=== PATIENT | female | born 1975 | race Caucasian/White ===

== ENCOUNTER 2023-01-20 01:19 | Day surgery (SDC) | payer OTHER, SELFPAY ==
[2023-01-11 11:33] VITALS: BMI 46.0
[2023-01-20 11:10] VITALS: BP 127/78; PULSE 65; RESP 20; TEMP 37.1; O2SAT 97; BMI 47.4
[2023-01-20] MEDS: LACTATED RINGERS 1,000 ML 150 ML IV CONT (11:23)
--- NOTE | 2023-01-20 12:11 | P.PNAN_ITS ---
Anes - Initial Pre Proc Eval Procedure: Operation Date: 01/20/23 12:30 Proposed Procedures p Colonoscopy - Wu Cisse MD Date/Time: 01/20/23 12:11 Surgeon: Wu Cisse MD Pre Op Diagnosis: family hx colon ca Patient Data Age: 47 Gender: F Height: 1.6 m Weight: 121.5 kg Last Vital Signs Temp 98.8 F 01/20/23 11:10 Pulse 65 01/20/23 11:10 Resp 20 01/20/23 11:10 BP 127/78 01/20/23 11:10 Pulse Ox 97 01/20/23 11:10 O2 Del Method Room Air 01/20/23 11:10 Allergies Allergy/AdvReac Type Severity Reaction Status Date / Time nickel Allergy Unknown unkown Verified 01/20/23 11:07 Home Medications Medication Instructions Recorded Confirmed Type cetirizine 10 mg tablet (Zyrtec) 10 mg PO DAILY PRN Allergy Symptoms 01/11/23 01/20/23 History norethindrone (contraceptive) 0.35 0.5 mg PO DAILY 01/11/23 01/20/23 History mg tablet Patient hx anesthesia problems: none Family hx anesthesia problems: none Results Review: All pre-operative results and documents have been reviewed as part of the pre- operative evaluation. [facility] Past Medical History Medical History Allergies Anxiety Family History Family History Father Family history of gout Hypertension Mother Family history of gout Patient's mother is , Onset Age: 75 Sibling Family history of gout Diabetes mellitus Hypertension Family history of allergic disorder Grandparent Family history of malignant neoplasm of gastrointestinal tract Family history of dementia Social History Social History Smoking status: Never smoker Alcohol intake: current Drinks per week: 7 Substance use: unknown Substance use type: does not use Lack of Transportation: No Lack of Food: Never True Current Housing: I Have Housing Concerned About Future Housing: No Difficulty Paying Gas/Electric Bills: No Difficulty Paying for Meds: No Currently Unemployed: No Education: Bachelor's Degree Difficulty w/ Childcare or Family Care: No Living arrangements: with family Spiritual care concerns: No Anes - Eval Final PreProcedure Day of Procedure 01/20/23 12:11 Patient weight: morbidly obese Heart: regular rate and rhythm Lungs: clear to auscultation Airway: Mallampati scale class II Neurological: alert and oriented Last oral intake: >/= 8 hours ASA classification: III Emergent: no Anesthetic plan: proceed Anesthesia type and monitoring: general GIVS and standard monitoring Results Review: All pre-operative results and documents have been reviewed as part of the pre- operative evaluation. Informed Consent: The patient's anesthetic plan and its attendant risks and benefits were discussed with the patient/family/POA. Questions were solicited and answers provided to the satisfaction of the patient/family/POA.
[2023-01-20 12:52] VITALS: BP 130/76; PULSE 75; RESP 21; O2SAT 96
--- NOTE | 2023-01-20 12:52 | PM.HPGS ---
History of Present Illness History of Present Illness Consent: Risks, benefits, and alternatives have been discussed and questions answered. Patient agrees to proceed with procedure. Chief complaint: family hx colon ca Narrative: Paula Jaime is a 47 year old female referred for colon cancer screening. She does have a family history of colon cancer. Review of Systems Review of Systems: All systems reviewed & are unremarkable except as noted in HPI and below PMFSH Past Medical History Medical History Allergies Anxiety Family History Family History Father Family history of gout Hypertension Mother Family history of gout Patient's mother is , Onset Age: 75 Sibling Family history of gout Diabetes mellitus Hypertension Family history of allergic disorder Grandparent Family history of malignant neoplasm of gastrointestinal tract Family history of dementia Social History Social History Smoking status: Never smoker Alcohol intake: current Drinks per week: 7 Substance use: unknown Substance use type: does not use Lack of Transportation: No Lack of Food: Never True Current Housing: I Have Housing Concerned About Future Housing: No Difficulty Paying Gas/Electric Bills: No Difficulty Paying for Meds: No Currently Unemployed: No Education: Bachelor's Degree Difficulty w/ Childcare or Family Care: No Living arrangements: with family Spiritual care concerns: No Meds Home Medications and Allergies Home Medications Medication Instructions Recorded Confirmed Type cetirizine 10 mg tablet (Zyrtec) 10 mg PO DAILY PRN Allergy Symptoms 01/11/23 01/20/23 History norethindrone (contraceptive) 0.35 0.5 mg PO DAILY 01/11/23 01/20/23 History mg tablet Allergies Allergy/AdvReac Type Severity Reaction Status Date / Time nickel Allergy Unknown unkown Verified 01/20/23 11:07 Vital Signs Vital Signs - 24 hr 01/20/23 11:10 Temperature 37.1 C Pulse Rate 65 Respiratory Rate 20 Blood Pressure 127/78 Pulse Oximetry 97 Oxygen Delivery Room Air Exam Const: General: alert Orientation/consciousness: patient oriented x3 Resp: Auscultation: clear to auscultation bilaterally Cardio: Rhythm: regular rhythm GI: GI Palp: Yes Soft to palpation and No Tenderness to palpation present (GI) Neuro: General: patient oriented x3 Assessment and Plan Assessment and plan (1) Colon cancer screening: Code(s): Z12.11 - Encounter for screening for malignant neoplasm of colon Status: Acute Assessment and Plan: Colonoscopy with possible biopsy or polypectomy or cautery or injection of substances.
[2023-01-20 13:02] VITALS: BP 120/68; PULSE 66; RESP 17; O2SAT 99
[2023-01-20 13:12] VITALS: BP 129/76; PULSE 64; RESP 18; O2SAT 98
== END 2023-01-20 13:25 | disposition home or self-care (01) ==
PROVIDERS: PCP Physician Assistant; Visit Provider Internal Medicine Gastroenterology
PROC: 0DJD8ZZ Inspection of Lower Intestinal Tract, Via Natural or Artificial Opening Endoscopic (ICD-10-PCS; CPT 45378; principal; 2023-01-20 12:30)
DX: Z12.11 Encounter for screening for malignant neoplasm of colon (principal); K57.32 Diverticulitis of large intestine without perforation or abscess without bleeding; Z80.0 Family history of malignant neoplasm of digestive organs; E66.01 Morbid (severe) obesity due to excess calories; Z68.42 Body mass index [BMI] 45.0-49.9, adult
CPT/HCPCS: 45380; 88305; J2704; J7120

== ENCOUNTER 2025-03-26 08:07 | Outpatient (CLI) | payer OTHER, SELFPAY ==
--- OUTSIDE RECORDS SUMMARY | 2025-03-09 03:00 | XMS_ITS ---
Author Organization [facility] Address [address] [place] [address] Care Team Providers Care Cisco Certified Network Professional Name Role Phone Migration, Provider Unavailable Unavailable REASON FOR VISIT EMR-Cecilio Encounters Encounter Location Date Provider Diagnosis [facility] [address] [place] [address] 03/09/2025 Provider Migration Plan Of Treatment No Information Progress Notes * Paula HESSDOB:1975 (50 yo F)Acc No.[id number]:03/09/2025 Patient: Paula CHEUNG :1975 A ge:50 Y S ex:Female Address:[address], [place], [address] Subjective: * Chief Complaints: * E MR-Cecilio * * Date:
--- OUTSIDE RECORDS SUMMARY | 2025-03-10 03:00 | XMS_ITS ---
Author Organization [facility] Address [address] [place] [address] Care Team Providers Care Auger Supervisor Name Role Phone Migration, Provider Unavailable Unavailable REASON FOR VISIT EMR-Cecilio Encounters Encounter Location Date Provider Diagnosis [facility] [address] [place] [address] 03/10/2025 Provider Migration Plan Of Treatment No Information Progress Notes * Paula HESSDOB:1975 (50 yo F)Acc No.[id number]:03/10/2025 Patient: Paula CHEUNG :1975 A ge:50 Y S ex:Female Address:[address], [place], [address] Subjective: * Chief Complaints: * E MR-Cecilio * * Date:
--- OUTSIDE RECORDS SUMMARY | 2025-03-26 08:14 | XMS_ITS | Clinical Summary ---
Author Organization [facility] Address [address] [place] [address] Care Team Providers Care Circuit Board Drafter Name Role Phone Unavailable Primary Care Provider Unavailabl e Source Comments [facility],non-owned Affiliates and Associated Physician Practices is amultiple site organization consisting of ambulatory clinics and hospital sitesin [place], [place], [place] and [place]. This disclosure is being madepursuant to the Care Everywhere program and may not contain all information available regarding this patient. Last updated 18.[facility] Allergies No known active allergies Medications * Be aware that medications may not be up to date on this document. Alwaysverify current medications with the patient. OtherIndication s:bcp norris Indications: bcp norris Active cyclobenzaprine (FLEXERIL) 10 MG tablet Take 1 Tab by mouth 3 times daily as needed for Muscle Spasms. Caution sedation. 15 Tab 0 10/15/2014 Active naproxen (NAPROSYN) 500 MG tablet Take 1 Tab by mouth 2 times daily as needed for Pain. 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 Gender Identity Not on file Sexual Orientation Not on file Last Filed Vital Signs Vital Sign Reading Time Taken Comments Blood Pressure 137/85 10/15/2014 10:03 AM CDT ri ght arm Pulse 62 10/15/2014 10:03 AM CDT Temperature 36.9 C (98.5 F) 10/15/2014 10:03 AM CDT Respiratory Rate 18 10/15/2014 10:03 AM CDT Oxygen Saturation 99% 10/15/2014 10:03 AM CDT Inhaled Oxygen Concentration - - Weight 90.7 kg (200 lb) 10/15/2014 10:03 AM CDT Height 160.7 cm (5' 3.25) 10/15/2014 10:03 AM C DT Body Mass Index 35.15 10/15/2014 10:03 AM CDT Plan of Treatment Health Maintenance Due Date Last Done Comments COLOGUARD (AGES 45-75) - COL ON CA SCREENING 1975 COLON MONITORING 1974 COLONOSCOPY - COLON CA SCREENING 1974 CT COLONOGRAPHY - COLON CA SCREENING 1974 Colorectal Cancer Screening 1975 FIT - COLON CA SCREENING 1974 FLEX SIG - COLON CA SCREENING 1974 LIPID TESTING 1975 MAMMOGRAM 1974 HIV SCREENING 1989 HEPATITIS C SCREENING 02/29/1992 DTAP/TDAP/TD VACCINES (1 - Tdap) 1993 HEPATITIS B VACCINE (1 of 3 - 19+ 3-dose series) 1993 PAP SMEAR 1995 PNEUMOCOCCAL VACCINE 50+ (1 of 1 - PCV) 2024 ZOSTER VACCINE (1 of 2) 2024 DEPRESSION SCREENING 05/23/2024 COVID-19 VACCINE (1 - 2023-2 5 season) 2025 INFLUENZA VACCINE (#1) 2025 HIB VACCINE Aged Out No longer eligi ble based on patient's age to complete this topic HPV VACCINE Aged Out No longer eligi ble based on patient's age to complete this topic MENINGOCOCCAL (Group B) VACC INE SHARED DECISION-MAKING Aged Out No longer eligibl e based on patient's age to complete this topic MENINGOCOCCAL GROUPS A/C/Y/W VACCINE Aged Out No longer eligible b ased on patient's age to complete [place] [address] [employer]
--- OUTSIDE RECORDS SUMMARY | 2025-03-26 08:15 | XMS_ITS | Clinical Summary ---
Author Organization [facility] Address [address] [place] [address] Care Team Providers Care Ice Resurfacing Machine Operators Name Role Phone Deandre Taylor MD Primary Care Provider Beba Duckworth MD Unavailable [phone] Allergies Active Allergy Reactions Criticality Noted Date Comments Nickel Itching,Swelling Medium 1985 Medications No known medications Active Problems Problem Noted Date Diagnosed Date Preventative health care 02/14/2025 Assessment & Plan (02/14/2025 3:04 PM CDT): - New or chronic worsening conditions: suspected sleep apnea - Mental health: no significant psychiatric/mental health conditions affecting her day to day functioning - Dental health: Recommend regular dental care and cleaning. Discussed importance of regular tooth brushing, flossing, and dental visits. - Nutrition: Recommend moderation in sodium/caffeine intake, saturated fat and cholesterol, caloric balance, sufficient intake of fresh fruits, vegetables - Exercise: Recommend to exercise at least 30 minutes moderate to vigorous exercise most days of the week. (minimum 150 minutes weekly) - Immunizations: Age and sex appropriate immunizations reviewed and offered - Cervical Cancer screening: not indicated, status post hysterectomy - Breast Cancer screening: Up to date - Colon cancer screening: Up to date, requesting colonoscopy records from [facility] - Lung cancer screening: not indicated - Bone desnity/osteoporosis screening:not indicated - control: Status post hysterectomy Class 3 severe obesity due t o excess calories without serious comorbidity with body mass index (BMI) of 45.0 to 49.9 in adult 02/14/2025 Assessment & Plan (02/14/2025 3:04 PM CDT): Wt Readings from Last 3 Encounters: 02/14/25 119.4 kg (263 lb 3.2 oz) 09/13/23 124.6 kg (274 lb 9.6 oz) 08/18/23 123.8 kg (272 lb 14.9 oz) Body mass index is 46.62 kg/m . - chronic condition, not at goal - BMI Follow-up includes: nutrition counseling, exercise counseling and education provided - Recommend to exercise at least 30 minutes moderate to vigorous exercise most days of the week. (minimum 150 minutes weekly) Long-standing obesity since childhood. Recent weight loss of 9 pounds due to dietary changes. 's diagnosis of hyperlipidemia has led to a Mediterranean diet, resulting in weight loss for both. Discussed challenges of weight loss, especially compared to 's more rapid weight loss. - Continue Mediterranean diet and lifestyle modifications - Recheck weight and dietary progress in six months Orders: Vitamin D 25 hydroxy; Future Folate; Future Vitamin B12; Future Comprehensive metabolic panel; Future Hemoglobin A1c; Future Lipid panel; Future S/P hysterectomy 02/14/2025 Assessment & Plan (02/14/2025 3:04 PM CDT): Secondary to presence of fibroids with excessive bleeding and anemia status post hysterectomy without oophorectomy Pure hypercholesterolemia 02/14/2025 Assessment & Plan (02/14/2025 3:04 PM CDT): - Recent diagnosis, on lab 11/2024, per chart review - Slightly elevated cholesterol levels noted in recent blood work. Dietary changes have been implemented due to 's hyperlipidemia, which should benefit her lipid profile as well. - Recheck lipid panel in six months to assess impact of dietary changes Orders: Lipid panel; Future Snoring 02/14/2025 Assessment & Plan (02/14/2025 3:04 PM CDT): Snoring and suspected sleep apnea Chronic snoring, likely exacerbated by obesity. Potential sleep apnea discussed, with its impact on cardiovascular health. She is open to evaluation. - Order home sleep study through [facility] Psychophysiological insomnia 02/14/2025 Assessment & Plan (02/14/2025 3:04 PM CDT): Chronic difficulty falling asleep, possibly related to stress and lack of exercise. She uses meditation and breathing techniques to aid sleep and prefers to avoid medications like melatonin. - Encourage continued use of meditation and breathing techniques for sleep Resolved Problems Problem Noted Date Diagnosed Date Resolved Date Adenomyosis 07/27/2023 02/14/2025 Abnormal uterine bleeding (AUB) 07/05/2023 02/14/2025 Fibroids 07/05/2023 02/14/2025 Encounter for IUD insertion 06/14/2017 01/30/2021 History of surgical procedure 10/04/2012 06/14/2017 Overview (08/26/2016): Status post LEEP (loop electrosurgical excision pr Encounters Date Type Department Care Team Description 02/18/2025 Telephone [facility] Primary Care at [address] [address] Deandre Taylor MD 02/14/2025 2:00 PM CDT Office Visit [facility] Medical [facility] Primary Care at [address] [address] Deandre Taylor MD Preventative health care (Primary Dx); Class 3 severe obesity due to excess calories without serious comorbidity with body mass index (BMI) of 45.0 to 49.9 in adult; Pure hypercholesterolemia; S/P hysterectomy; Snoring; Psychophysiological insomnia; KIRTI (obstructive sleep apnea) from Last 3 Months Immunizations Immunization Administration Dates Next Due Influenza, Quadrivalent, Spl it, Preservative Free, Intramuscular 02/28/2018 Influenza, Unspecified 02/07/2025(Deferr ed: Patient Refused),05/23/2024(Deferred: Patient Refused) Pfizer SARS-CoV-2 Monovalent Vaccination (12+ Yrs) PURPLE 08/22/2020,08/01/2020 Surgical History Surgery Date Site/Laterality Comments EYE SURGERY 05/23/1992 - 05/22/1993 age 17 LAPAROSCOPIC HYSTERECTOMY Family History Medical History Relation Name Comments Hypertension Brother 1 Mason Tadeo Jr. Obesity Brother 1 Mason Tadeo Jr. Hypertension Brother 2 Ac Tadeo Obesity Brother 2 Ac Tadeo Cancer Father Mason Tadeo Sr. Hypertension Father Mason Tadeo Sr. Alcohol abuse Mother Other Other 1 No family histo ry of Cancer, breast; Other Other 2 No family histo ry of Cancer, colon; Other Other 3 No family histo ry of Cervical cancer; Other Other 4 No family histo ry of Ovarian cancer; Relation Name Status Comments Brother 1 Mason Tadeo Jr. Brother 2 Ac Tadeo Father Mason Tadeo Sr. Mother Other 1 Other 2 Other 3 Other 4 Sister 1 Alive Sister 2 Alive Social History Tobacco Use Types Packs/Day Years Used Date Smoking Tobacco: Never Smokeless Tobacco: Never Tobacco Cessation:Counseling Given: Not Answered Alcohol Use Standard Drinks/Week Comments Yes 7 (1 standard drink = 0.6 oz pur e alcohol) Humiliation, Afraid, Rape, and Kick questionnair e Answer Date Recorded Fear of Current or Ex-Partner No Emotionally Abused No 01/29/2020 Physically Abused No 01/29/2020 Sexually Abused No 01/29/2020 AUDIT-C Answer Date Recorded Q1: How often do you have a drink containing alc ohol? 2-3 times a week 08/09/2023 Q2: How many drinks containi ng alcohol do you have on a typical day when you are drinking? 1 or 2 08/09/2023 Q3: How often do you have si x or more drinks on one occasion? Never 08/09/2023 PHQ-2 Answer Date Recorded PHQ-2 Total Score (If total score is 3 or more points, staff should administer the PHQ-9) 0 02/14/2025 Personal Safety Answer Date Recorded Have you ever been in or are you currently in a harmful physical or emotional relationship or is someone making you feel afraid or unsafe? 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 Gender Identity Female 01/29/2020 8:18 AM CDT Sexual Orientation Not on file Obstetrics History Para Term AB IAB SAB Ectopic Multiple Livin g Live Births 0 0 0 0 0 0 0 0 0 0 0 Last Filed Vital Signs Vital Sign Reading Time Taken Comments Blood Pressure 130/84 02/14/2025 1:57 PM CDT Pulse 67 02/14/2025 1:57 PM CDT Temperature 36.8 C (98.2 F) 02/14/2025 1:57 PM CDT Respiratory Rate 15 08/18/2023 2:35 PM CDT Oxygen Saturation 98% 02/14/2025 1:57 PM CDT Inhaled Oxygen Concentration - - Weight 119.4 kg (263 lb 3.2 oz) 02/14/2025 1:57 PM CDT Height 160 cm (5' 3) 02/14/2025 1:57 PM CDT Body Mass Index 46.62 02/14/2025 1:57 PM CDT Plan of Treatment Health Maintenance Due Date Last Done Comments Hepatitis C Screening 1975 DTaP/Tdap/Td Vaccine (1 - Tdap) 1985 Hepatitis B Screening 1992 Breast Cancer Screening-Mammogram 12/15/2023 12/14/2022, 02/12/2021, 01/29/2020, Additional history exists Cervical Cancer Screening 12/15/20232022, 12/14/2022, 01/29/2020 Zoster Vaccine (1 of 2) 2024 Covid-19 Vaccine (3 - season) 2025 08/22/2020, 08/01/2020 Influenza Vaccine (#1) 2025 02/28/2018 Depression Screening 02/14/2026 02/14/2025 Regular Well Visit/Exam 18-64 02/14/2026 02/14/2025, 12/14/2022, 02/12/2021, Additional history exists Colon Cancer Screening-Colonoscopy 01/21/2028 01/20/2023 Pneumococcal vaccine <65 Aged Out No longer eligible based on patient's age to complete this topic Procedures Procedure Name Priority Date/Time Associated Diagnosis Comments COLONOSCOPY Routine 01/20/2023 PAP AND HIGH RISK HPV, REFLEX TO GENOTYPING Routine 12/14/2022 4:06 PM CDT Well woman exam with routine gynecological exam SCREENING MAMMOGRAM BILATERAL W CLARK Schedule Routine, Read Routine (OP Routine) 12/14/2022 1:51 PM CDT Screening mammogram, encounter for from Last 3 Months or Most Recently Relevant to Health Maintenance Results * Colonoscopy (01/20/2023) Anatomical Region Laterality Modality Other us Historical Provider ENDOSCOPY PROCEDURES Nhung chelsey Result * Pap and High Risk HPV and Genotyping (Cytology Component) (12/14/2022 4:06 PM CDT) Thin prep (Pap test) 12/14/2022 4:06 PM CDT 12/22/2022 12:18 PM CDT Narrative PATHOLOGY [facility] - 12/24/2022 2:31 PM CDT EPIC results best viewed via link to PDF [address] [address] Tele: Hannah Haywood MD - [place] Worker CYTOLOGY REPORT Note to Patients: This report may contain a detailed description of human tissue sent by a health care provider to the laboratory for pathologic evaluation. The content of this report is essential for diagnosis and may provide important critical findings. This information may be unfamiliar to patients to review without a medical professional present. It is advised that the patient review this report in the presence of a health care provider who can answer questions and explain the details. Patient Name: RADHA HESS Address: [address] [place] [address] Gender: F : 1975 (Age: 47) Service: Location: [facility] : [id number] [facility] #: [id number] Patient Type: [facility] SPECIMEN Taken: 12/14/2022 Reported: 12/24/2022 Physician(s): Beba Duckworth M.D. FINAL DIAGNOSIS: SOURCE OF SPECIMEN - ThinPrep Pap and HPV w/ reflex Genotyping: STATEMENT OF ADEQUACY Source: Cervical/Endocervical - Satisfactory for interpretation - Endocervical /Transformation Zone component present - Case screened using computer assisted imaging technology GENERAL CATEGORIZATION: - Negative for intraepithelial lesion or malignancy yvonne/12/24/2022 14:31RanJESE Villanueva(ASCP), CFIAC Report Reviewed and Electronically Signed By JESE Baker(ASCP), CFIACClerical Data Follow A; [id number] DIAGNOSIS COMMENT: Ancillary Testing: HPV Genotype 16 - Not Detected Reference Range: Not Detected HPV Genotype 18 - Not Detected Reference Range: Not Detected HPV High Risk Group (31, 33, 35, 39, 45, 51, 52, 56, 58, 59, 66 and 68) - Not Detected Reference Range: Not Detected This test was performed using the NANCY 4800 CLINICAL DIAGNOSIS AND HISTORY Last Menstrual Period: 11/29/22 REPORT IMAGES AND/OR SCANNED DOCUMENTS ONLY VIEWABLE IN PDF FORMAT The Pap test is a screening test used to aid in the detection of cervical cancer and its precursors. It should not be the sole means by which malignant and premalignant lesions are diagnosed. Both false negative and false positive results may occur. It also has poor sensitivity for the detection of endometrial lesions and should not be used to evaluate suspected endometrial abnormalities. For these reasons it is most important to obtain Pap tests at regular intervals, as recommended by your physician or nurse practitioner. Beba Duckworth MD LAB CYTOLOGY ORDERABLES Final Result PATHOLOGY [facility] Laboratory Receiving [address] [place] [address] * Screening Mammogram Bilateral W Clark (12/14/2022 1:51 PM CDT) Anatomical Region Laterality Modality Breast Bilateral Mammography Narrative 12/14/2022 2:31 PM CDT Examination: Screening Mammogram Bilateral W Clark: 12/14/22 Clinical: Screening mammogram, encounter for. Prior Study Comparisons: Comparison was made to the prior available relevant studies at the time of interpretation. Findings: Bilateral No significant masses, malignant type calcifications, skin thickening, nipple retraction, or significant lymphadenopathy is noted in either breast. The CAD review showed no significant findings. The breasts have scattered areas of fibroglandular density. The patient will be notified of results by letter. Impression: BI-RADS ATLAS category (overall): 1 - Negative There is no mammographic evidence of malignancy. Routine Screening Mammogram in 1 Yr is recommended for bilateral Overall Assessment: 1 - Negative us Self Screening Mammogram IMG MAMMO PROCEDURES Fi nal Result from Last 3 Months or Most Recently Relevant to Health Maintenance Insurance [employer] Care Teams Ice Resurfacing Machine Operators Relationship Specialty Start Date End Date Deandre Taylor MD [address] [facility] [address] [place] [address] PCP - General Family Medicine 02/14/25 Beba Duckworth MD [address] [facility] [facility] [address] [place] [address] Consulting Physician Obstetrics and Gynecology 02/14/25
--- OUTSIDE RECORDS SUMMARY | 2025-03-26 08:15 | XMS_ITS | Clinical Summary ---
Author Organization [facility] Address [address] [place] [id number] Care Team Providers Care Track Grinder Name Role Phone Unavailable Primary Care Provider Unavailabl e Active Problems No known active problems Encounters Date Type Department Care Team Description 03/12/2025 External Device Data [facility] ABSTRACTION Provider, Abstract 02/05/2025 External Device Data [facility] Provider, Abstract 12/25/2024 External Device Data [facility]STRACTION Provider, Abstract from Last 3 Months Social History Tobacco Use Types Packs/Day Years Used Date Smoking Tobacco: Never Assessed Comments Unknown Sex and Gender Information Value Date Recorded Sex Assigned at Not on file Legal Sex Female 8:46 AM CDT Gender Identity Not on file Sexual Orientation Not on file Last Filed Vital Signs Vital Sign Reading Time Taken Comments Blood Pressure 120/74 12/07/2024 10:27 AM CDT Pulse - - Temperature - - Respiratory Rate - - Oxygen Saturation - - Inhaled Oxygen Concentration - - Weight 119.7 kg (264 lb) 12/07/2024 10:27 AM CDT Height 160 cm (5' 3) 12/07/2024 10:27 AM CDT Body Mass Index 46.77 12/07/2024 10:27 AM CDT Plan of Treatment Health Maintenance Due Date Last Done Comments Pre-Diabetes and Diabetes Screening 1974 DTAP/TDAP/TD VACCINES (1 - Tdap) 1993 HEPATITIS B VACCINES (1 of 3 - 19+ 3-dose series) 1993 HPV/Cotest (21-29) 1995 HPV/Cotest (30-65) 2004 COLORECTAL SCREENING 2019 Colorectal Cancer Screening 2019 FIT-DNA Q 3 years 2019 FIT/FOBT Q 1 year 2019 Flex Sig/CT Colonography Q 5 years 2019 BREAST CANCER SCREENING 12/15/2023 12/15/19, 12/14/2022, 02/12/2021, Additional history exists ZOSTER VACCINE (1 of 2) 2024 INFLUENZA VACCINE (#1) 2024 02/28/2018 COVID-19 Vaccine (2024-2 6 season) 2025 08/22/2020, 08/01/2020 CERVICAL CANCER SCREENING 12/14/2025 PAP SMEAR 12/14/2025 12/14/2022 Insurance ALLEGIANCE OPEN ACCESS ALLEGIANCE OPEN ACCESS
--- OUTSIDE RECORDS SUMMARY | 2025-03-26 08:15 | XMS_ITS | Patient Health Record ---
Author Organization [facility] Address [address] [place] [address] Care Team Providers Care Forestry Instructor Name Role Phone Migration, Provider Unavailable Unavailable Reason For Referral No Information Encounters Encounter Location Date Provider Diagnosis [facility] [address] [place] [address] 03/09/2025 Provider Migration [place] [address] [place] [phone] 03/10/2025 Provider Migration Plan Of Treatment No Information
[2025-04-02 14:21] VITALS: BMI 47.5
--- NOTE | 2025-04-02 14:21 | WPDHOMESLEEP ---
Sleep Study - Home Unattended Date of Study: 03/26/25 Ordering Provider: Deandre TaylorMD Interpreting Provider: Alejandrina Vallejo DO Home Sleep Study Type: Watch PAT Height: 1.6 m Weight: 121.563 kg Body Mass Index: 47.5 Neck Circumference (inches): 16 Rowley: 13 Reason for Sleep Study Daytime hypersomnia Sleep History The patient is a 50-year-old female that had a sleep study ordered by her primary care physician for evaluation of sleep apnea. The patient admits to snoring loudly, trouble falling asleep and trouble staying asleep. She denies having interruptions in breathing while asleep. She does choke or gasp at night. She denies having trouble breathing on her back. She denies morning headaches. She does have a dry or sore mouth / throat in the morning. She does have nocturnal heartburn. She denies nocturia. She does have difficulty returning to sleep if she wakes up throughout the night. She denies any hypnotic or sedative use. She does feel anxious about sleep. She does feel tired or sleepy during the day. She does feel tired in the morning. She denies having the urge to fall asleep during the day. She does feel drowsy while driving. She denies sleep paralysis, cataplexy and hypnagogic/ hypnopompic hallucinations. She does clench or grind her teeth. She denies kicking or jerking her legs excessively. She denies having a restless feeling in her legs. She goes to bed at 11:00 p.m. every night. It takes her 15 minutes to fall asleep. She gets 5 hours of sleep on work days and 6-1/2 hours on her days off. Her sleep is not restorative on her days off. She denies taking any planned naps. She denies dream enactment behavior. She denies sleep walking. She consumes 1-2 cups of caffeinated beverage per day. She consumes 1 alcoholic beverage 1-2 nights per week. She denies tobacco use. She exercises 1-2 nights per week. [facility], [facility] Past Medical History Medical History Anxiety Allergies Family History Family History Father Family history of gout Hypertension Mother Family history of gout Patient's mother is , Onset Age: 75 Sibling Family history of gout Diabetes mellitus Hypertension Family history of allergic disorder Grandparent Family history of malignant neoplasm of gastrointestinal tract Family history of dementia Social History Social History Smoking status: Never smoker Alcohol intake: current Drinks per week: 7 Substance use: unknown Substance use type: does not use Lack of Transportation: No Lack of Food: Never True Current Housing: I Have Housing Concerned About Future Housing: No Difficulty Paying Gas/Electric Bills: No Difficulty Paying for Meds: No Currently Unemployed: No Education: Bachelor's Degree Difficulty w/ Childcare or Family Care: No Living arrangements: with family Spiritual care concerns: No Medications Home Medications ?Medication ?Instructions ?Recorded ?Confirmed ?Type cetirizine 10 mg tablet (Zyrtec) 10 mg PO DAILY PRN Allergy Symptoms 01/11/23 01/20/23 History norethindrone (contraceptive) 0.35 0.5 mg PO DAILY 01/11/23 01/20/23 History mg tablet semaglutide 1 mg/dose (4 mg/3 mL) 1 mg (0.75 mL) subcut WEEKLY #3 mL 11/01/23 Rx subcutaneous pen injector Sleep Procedure The sleep study was completed using [employer] a technically adequate device with seven channels: peripheral arterial tone, actigraphy, body position, snore, respiratory movement, pulse oximetry, sleep staging, and heart rate. Prior to using the device, the patient received verbal and written instructions for its application and was provided with the help desk phone number for additional telephonic instruction with 24-hour availability of qualified personnel to answer questions. The study was scored using CMS guidelines. Sleep Architecture The total recording time is 8 hrs, 8 min. The total sleep time is 6 hrs, 51 min. Sleep latency is 14 minutes. REM latency is 41 minutes. The patient had 13 episodes of waking. Sleep architecture shows 15.1% deep sleep, 57.8% light sleep, and (as % Total Sleep Time) showed NREM (Light 57.8%; Deep 15.1%), and a 27.1% stage REM. The patient spent 67.0% of total sleep time in the supine position. Sleep efficiency was 84.22. Respiratory Analysis The overall AHI (pAHI 4%:) is 23.7. The overall AHI (pAHI 3%:) is 30.0. The central AHI is 2.6. The AHI was 24.1 in NREM and 45.8 in REM sleep. The AHI was 29.5 in Supine and 31.2 in Non-supine sleep. Percent of Christopher Kapoor respirations is 0.0. Oximetry Data The oxygen desaturation index (KORI 4%:) is 14.7. The mean saturation is 93%, and the lowest saturation is 84%. Time spent with saturation < 88% is 2.8 minutes. Snoring Profile Snoring average intensity is 44 dB. The patient snored above 45 decibels for 98.2 minutes, 23.9% of sleep time. Cardiac Profile The average pulse rate is 66 beats per minutes. The lowest pulse rate is 32 bpm. The highest pulse rate reported is 130 bpm. Suspected Afib total duration is 0:42:18, (h:m:sec). The longest Afibevent duration is 0:06:27. Premature beats occur 1.9 per minute. Assessment and Plan Assessment and Plan (1) KIRTI (obstructive sleep apnea): Code(s): G47.33 - Obstructive sleep apnea (adult) (pediatric) Status: Acute Assessment and Plan: The patient had an overall AHI of 23.7 with desaturation down to 84%. This is consistent with moderate sleep apnea. I recommend that the patient have a CPAP titration study with the use of a hypnotic to ensure we obtain enough sleep data find an optimal pressure setting. If her insurance will not cover the sleep study, a trial of AutoPAP 5-15 cm H2O can be done. A mandibular advancement device is also an acceptable treatment option. (2) Abnormal heart rhythm: Qualifiers: Arrhythmia type: unspecified cardiac arrhythmia Qualified Code(s): I49.9 - Cardiac arrhythmia, unspecified Code(s): I49.9 - Cardiac arrhythmia, unspecified Status: Acute Assessment and Plan: It was estimated that the patient had 42 minutes of suspected atrial fibrillation throughout the study with the longest episode being 6 minutes. The patient does not have a diagnosis of atrial fibrillation. I recommend that the patient have a Holter monitor done for further evaluation. Data The data obtained during this sleep study is adequate for interpretation. Certification This sleep study has been reviewed by a board certified sleep medicine physician.
== END 2025-03-27 13:41 | disposition home or self-care (01) ==
LOC: ANHCSM 08:08
PROVIDERS: PCP Family Medicine; Visit Provider Family Medicine
DX: G47.33 Obstructive sleep apnea (adult) (pediatric) (principal); I49.9 Cardiac arrhythmia, unspecified
CPT/HCPCS: 95800